=== PATIENT | male | born 1950 ===

== ENCOUNTER 2025-01-28 13:43 | Outpatient (AMB) | payer MEDICARE, OTHER, SELFPAY ==
--- NOTE | 2025-01-28 14:00 | MHC.OFFVIS ---
Intake Visit Reasons: Dementia Allergies No Known Allergies Allergy (Verified 01/26/25 09:55) Medication List - Last Reconciled 01/28/25 by Yissel Barros MD donepezil 5 mg PO DAILY 30 days lisinopril 10 mg PO DAILY mecobalamin (vitamin B12) 1,000 mcg PO DAILY memantine 10 mg PO BID 30 days metformin 500 mg PO BID HPI Comments Details: This is a 74-year-old man who is here with his sister who acted as an full time staff interpreter. He has a history of hypertension diabetes and chronic alcohol abuse having cut down his drinking lately. He has had progressive cognitive decline over the last few years in his balance has deteriorated so that he walks with a broad-based gait but reports no falls. Subjectively the patient feels fine and he does not feel there is anything wrong with him and is not aware of his memory. He has already had a CAT scan of the head which showed diffuse cortical atrophy and white matter disease, thyroid levels were normal B12 was low at 193. He also has a history of cirrhosis of the liver. [facility], [facility] Medical History (Updated 01/28/25 @ 14:09 by Yissel Barros MD) Type 2 diabetes mellitus Dementia Review of Systems Reports difficulty urinating Musc Reports abnormal gait Neuro Reports abnormal gait, Reports lack of coordination and Reports memory loss Psych Reports memory loss Physical Exam Neuro Other: He is alert pleasant and cooperative. He is disoriented to day date month and ear. He thinks it is 1976. He thought it was February. He does not know the floor he is on but knows he is in [place] in what he considers a facility to help him stop drinking. He is unable to do serial 7 subtractions. 0/3 recall at the end of 3 minutes. He walks with a broad-based ataxic gait. His neuro exam is otherwise nonfocal MMS 20/30 Mini Mental Status Exam Level of Consciousness:?Alert.? Orientation:?Does not Know correct year, month, date, day and season.?Knows correct city, not county and state. not Know correct location and floor.? Registration:?Able to register 3 objects.? Attention:?Serial 7's unable.? Recall:?Able to recall 0 out of 3 objects.? Language:?Normal spontaneous speech, fluency, repetition, naming, comprehension, reading, and writing.? ?? Total Score:?20/30.? Neurological Abnormal neurological findings:??None. ? Mental Status:?as above Cranial Nerves:?Pupils are equal, round and reactive to light. Fundoscopy shows normal disc bilaterally. External ocular muscles are intact. Visual hinds are full, no ptosis. Face is symmetrical, no facial weakness or droop. Facial sensations are normal.? Tongue protrudes in midline. Palate elevates symmetrically. Shoulder?? shrugging is normal.? Motor Examination:?Normal muscle tone, bulk and strength.?No atrophy or fasciculations.?No drift of the extended upper extremities.?Deep tendon reflexes are 2+.?Plantars?? are flexor.? ?Motor Strength:? Proximal Muscles (out of 5):?5 Distal Muscles (out of 5):?5 Neck Flexors (out of 5):?5 Neck Extensors (out of 5):?5 Deltoid (out of 5):?5 Biceps (out of 5):?5 Triceps (out of 5):?5 Serratus Anterior (out of 5):?5 Wrist Extensors (out of 5):?5 APB (out of 5):?5 Finger Spread (out of 5):?5 Ileopsoas (out of 5):?5 Quadriceps (out of 5):?5 Hamstrings (out of 5):?5 Tibialis Anterior (out of 5):?5 Peronei (out of 5):?5 EDB (out of 5):?5 Gastrocnemius (out of 5):?5 Straight Leg Raising:?90 degrees.? Sensory Exam:?Normal light touch,?? temperature, pinprick, vibration and joint-position sensations.?Rhomberg?? sign is absent.? Coordination:?No ataxia,?no titubation,?qvfjtd-yo-gimx, kbso-egyt-wmnd test, and rapid alternating?? movements were normal.? Gait Exam:?Broad based ataxix gait? Cerebellar Signs:?Ozgxiu-sr-uqmb and?? ncvv-pm-fmca is normal.?No dysdiadochokinesia.? Extrapyramidal System:?No tremor or?rigidity, normal facial expressions.?No bradykinesia. No bradyphrenia. Normal arm swing and posture. No propulsion or retropulsion.? Speech:?Normal,?no dysphasia or dysarthria.? General Examination GENERAL APPEARANCE:??Morbid obesity, in no acute distress?.? ?? HEAD:??normocephalic,?atraumatic.? ?? EYES:??sclera non-icteric,?conjunctiva clear.? ?? EARS:??auditory canal clear,?tympanic membrane intact, clear.? ?? NOSE:??no lesions.? ?? ORAL CAVITY:??gums normal,?mucosa moist,?no lesions.? ?? THROAT:??clear.? ?? NECK/THYROID:??no cervical lymphadenopathy,?thyroid normal,?neck supple, full range of motion,?no carotid bruit.? ?? SKIN:??no rashes,?no significant?? birthmarks.? ?? HEART:??S1, S2 normal,?no murmurs? ?? LUNGS:??clear anteriorly and ?posteriorly? ?? CHEST:??no gross rib deformity,?clear to ?auscultation.? ?? BACK:??normal exam of spine.? ?? MUSCULOSKELETAL:??normal.? ?? EXTREMITIES:??no edema.? ?? PERIPHERAL PULSES:??normal.? ?? PSYCH:??alert, oriented,?cognitive function intact,?cooperative with exam?,?alert,?? oriented,?cognitive ?function intact,?cooperative with exam.? Assessment & Plan Assessment & Plan (1) Chronic alcohol abuse: Code(s): F10.10 - Alcohol abuse, uncomplicated Category: Medical (2) Dementia: Code(s): F03.90 - Unspecified dementia, unspecified severity, without behavioral disturbance, psychotic disturbance, mood disturbance, and anxiety Category: Medical Plan Donepezil 5mg a aday and memantine 10mg bid ; EEG. Stop drinking completely Orders: Orders EEG Routine Today F03.90 - Unspecified dementia, unspecified severity, without behavioral disturbance, psychotic disturbance, mood disturbance, and anxiety Medications: New donepezil 5 mg PO DAILY 30 tabs 5RF 30 days memantine 10 mg PO BID 60 tabs 5RF 30 days Coding Level of Care Code New Pt Level 5 (40009) Diagnoses Chronic alcohol abuse F10.10 Dementia F03.90
--- OUTSIDE RECORDS SUMMARY | 2025-01-28 21:18 | XMS_ITS | Encounter Summary ---
Author Organization [facility] Address [address] [place] [address] Care Team Providers Care Guest Attendant Name Role Phone Tracey Norton MD Primary Care Provider Reason for Referral * Consultation (Routine) - Closed Specialty Diagnoses / Procedures Referred By Contac t Referred To Contact Neurology Diagnoses B12 deficiency Mixed dementia ([facility] V24, [facility] V28) Current smoker Moderate dementia without behavioral disturbance, psychotic disturbance, mood disturbance, or anxiety, unspecified dementia type ([facility] V24, [facility] V28) Type 2 diabetes mellitus treated without insulin ([facility] V24, [facility] V28) Tracey Norton MD [address] [place] [address] Phone: tel: fax: Jenny Gonzalez MD [address] [place] [address] [place] [address] Phone: tel: fax: Referral ID Status Reason Start Date Expiration Date V isits Requested Visits Authorized [id number] Closed Specialty Services Required 12/08/2024 12/08/2025 4 4 Encounter Details Date Type Department Care Team (Late st Contact Info) Description 11/28/2024 Results Follow-Up Adult Medicine - [facility] [address] [place] [address] Tracey Norton MD [address] [place] [address] Social History Tobacco Use Types Packs/Day Years Used Date Smoking Tobacco: Every Day Cigarettes 1.5 61.9 Started: 1962 Smokeless Tobacco: Never Alcohol Use Standard Drinks/Week Comments Yes 2 (1 standard drink = 0.6 oz pur e alcohol) Interpersonal Safety Answer Date Record ed Physical Abuse Unrecognized value 01/16/2024 Verbal Abuse Unrecognized value 01/16/2024 Sex and Gender Information Value Date Recorded Sex Assigned at Not on file Legal Sex Male 2:59 AM EST Gender Identity Not on file Sexual Orientation Not on file documented as of this encounter Ordered Prescriptions Prescription Sig Dispense Quantity Refills Last Filled Start Date End Date cyanocobalamin (Vitamin B-12) 1,000 mcg tabletIndications:B 12 deficiency Take 1 tablet (1,000 mcg total) by mouth 1 (one) time each day. 30 each 11 11/28/2024 documented in this encounter Plan of Treatment Upcoming Encounters Date Type Department Care Team (Late st Contact Info) Description 03/31/2025 11:00 AM EST Office Visit Adult Medicine - [facility] [address] [place] [address] Curtis Rodriguez PA [address] [place] [address] Scheduled Referrals Name Type Priority Associated Diagnoses Orde r Schedule Ambulatory referral to Neurology Outpatient Referral Routine B12 deficiency Mixed dementia ([facility] V24, [facility] V28) Current smoker Moderate dementia without behavioral disturbance, psychotic disturbance, mood disturbance, or anxiety, unspecified dementia type ([facility] V24, [facility] V28) Type 2 diabetes mellitus treated without insulin ([facility] V24, [facility] V28) Expected: 12/08/2024 (Approximate), Expires: 12/08/2025 documented as of this encounter Visit Diagnoses Diagnosis Mixed dementia ([facility] V24, [facility] V28)- Primary B12 deficiency Current smoker Moderate dementia without behavioral disturbance, psychotic disturbance, mood disturbance, or anxiety, unspecified dementia type ([facility] V24, [facility] V28) Type 2 diabetes mellitus treated without insulin ([facility] V24, [facility] V28) documented in this encounter Additional Health Concerns Assessment Noted Time PHQ-9 Depression Total Score: 0 11/29/19 25 10:37 AM EDT documented as of this encounter Care Teams Guest Attendant Relationship Specialty Start Date End Date Tracey Norton MD [address] [place] [id number] PCP - General Internal Medicine 03/11/21 documented as of this encounter
--- OUTSIDE RECORDS SUMMARY | 2025-01-28 21:18 | XMS_ITS | Clinical Summary ---
Author Organization [facility] Address [address] [place] [address] Phone Care Team Providers Care Inventory Control Assistant Name Role Phone Tracey Norton MD Primary Care Provider Allergies No known active allergies Medications metFORMIN XR (GLUCOPHAGE-XR) 500 mg 24 hr tablet TAKE 1 TABLET(500 MG) BY MOUTH TWICE DAILY WITH MEALS. DO NOT CRUSH, CHEW, OR SPLIT 180 tablet 5 Active cyanocobalamin (Vitamin B-12) 1,000 mcg tabletIndicatio ns:B12 deficiency Take 1 tablet (1,000 mcg total) by mouth 1 (one) time each day. 30 each 11 5 Active lisinopriL (PRINIVIL,ZESTR IL) 10 mg tablet TAKE 1 TABLET(10 MG) BY MOUTH 1 TIME EACH DAY 90 tablet 1 5 Active lisinopriL (PRINIVIL,ZESTR IL) 10 mg tablet Take 1 tablet (10 mg total) by mouth 1 (one) time each day. 90 tablet 1 5 01/01/20 25 Discontinued Active Problems Problem Noted Date Diagnosed Date Heart murmur 08/18/2022 Cirrhosis of liver without ascites 06/26/2018 Overview (12/04/2023): Seen on CT 2019 Other emphysema 06/26/2018 Overview (12/04/2023): Seen on CT Pulmonary nodule 07/14/2016 Overview (12/04/2023): Repeat 12/2016 Glaucoma 12/04/2012 Overview (12/04/2023): Laser surgery, Dr Becker Primary hypertension 12/04/2012 Assessment & Plan (11/28/2024 11:56 AM EDT): C/w lisinopril 10mg daily. Orders: Comprehensive metabolic panel; Future Hemoglobin A1c; Future Thyroid stimulating hormone with reflex to free t4 and free t3; Future Vitamin B12; Future CT Head wo Contrast; Future Tobacco use disorder 12/04/2012 Type 2 diabetes mellitus 12/04/2012 Overview (12/04/2023): Dx 2006 Assessment & Plan (11/28/2024 11:56 AM EDT): Taking metformin. Uptodate with eye exam. Due for labs. Orders: Comprehensive metabolic panel; Future Hemoglobin A1c; Future Thyroid stimulating hormone with reflex to free t4 and free t3; Future Vitamin B12; Future CT Head wo Contrast; Future Encounters Date Type Department Care Team Description 01/13/2025 11:22 AM EST - 01/13/2025 11:59 PM EST Hospital Encounter [facility] CT Scan [address] [place] [id number] Encounter for screening for malignant neoplasm of respiratory organs; Nicotine dependence, cigarettes, uncomplicated Discharge Disposition: Home or Self Care 01/06/2025 Telephone Adult Medicine - [place] [address] [place] [phone] Tracey Norton MD 12/23/2024 Telephone Lung Screening Program - [place] [address] [place] [phone] Niki Aquino [place] 12/05/2024 9:15 AM EDT - 12/05/2024 11:59 PM EDT Hospital Encounter CT Scan - [address] [phone] Medicare annual wellness visit, subsequent; Type 2 diabetes mellitus without complication, without long-term current use of insulin ([facility] [place], [facility] V28); Primary hypertension; Current smoker; Moderate dementia without behavioral disturbance, psychotic disturbance, mood disturbance, or anxiety, unspecified dementia type ([facility] V24, [facility] V28) Discharge Disposition: Home or Self Care 11/28/2024 9:45 AM EDT Office Visit Adult [facility] [address] [place] [phone] Tracey Norton MD Medicare annual wellness visit, subsequent (Primary Dx); Type 2 diabetes mellitus without complication, without long-term current use of insulin ([facility] V[place], [facility] V28); Primary hypertension; Current smoker; Moderate dementia without behavioral disturbance, psychotic disturbance, mood disturbance, or anxiety, unspecified dementia type ([facility] V24, [facility] V28); Advance care planning; Encounter for immunization 11/28/2024 Results Follow-Up Adult [facility] [address] [place] [address] Tracey Norton MD from Last 3 Months Immunizations Immunization Administration Dates Next Due Influenza trivalent, 0.5mL ( Fluad) 65yo and older 11/28/2024,11/13/2023 Moderna SARS-CoV-2 COVID-19, mRNA, LNP-S, preservative free 02/14/2021,07/15/2020,06/17/2020 Pneumococcal conjugate 13 va lent (Prevnar 13, PCV13) 2mo and older 05/14/2018 Pneumococcal polysaccharide 23 valent (Pneumovax 23) 2yo and older 12/04/2012 Tdap Tetanus diptheria acell ular pertussis (Boostrix; Adacel) 7yo and older 09/22/2022,09/16/2012 Surgical History Surgery Date Site/Laterality Comments EYE SURGERY 2009 PROCEDURE: HISTORICAL EYE SURGERY; COMMENT: laser, glaucoma, Dr Ennis OTHER SURGICAL HISTORY PROCEDURE: NC RADIAL KERATOTOMY COLONOSCOPY 12/07/15 PROCEDURE: HISTORICAL COLONOSCOPY; COMMENT: Diverticulosis, adenoma sigmoid colon Medical History Medical History Date Comments Hypertension 12/04/2012 DX:Hypertension Glaucoma DX:Glaucoma Other emphysema ([facility] [place], [facility] V28) 019 DX:Other emphysema (HCC) Murmur, heart Cirrhosis (CMS/HCC V24, CMS/HCC V28) Pulmonary nodule Diabetes mellitus (CMS/HCC V24, CMS/HCC V28) Colon polyp Family History Medical History Relation Name Comments Other cancer Brother 1 unknown, jaundi ce No Known Problems Brother 2 No Known Problems Brother 3 Depression Father Hypertension Father Asthma Mother Cataracts Mother Diabetes Mother Hypertension Mother No Known Problems Sister 1 No Known Problems Sister 2 No Known Problems Sister 3 No Known Problems Sister 4 Blindness Neg Hx Glaucoma Neg Hx Lung cancer Neg Hx Macular degeneration Neg Hx Strabismus Neg Hx Relation Name Status Comments Brother 1 Brother 2 Brother 3 Alive Father Mother Sister 1 Alive Sister 2 Alive Sister 3 Alive Sister 4 Alive Social History Tobacco Use Types Packs/Day Years Used Date Smoking Tobacco: Every Day Cigarettes 1.5 61.9 Started: 1962 Smokeless Tobacco: Never Tobacco Cessation:Ready to Q uit: Not Asked; Counseling Given: Not Answered Alcohol Use Standard Drinks/Week Comments Yes 2 (1 standard drink = 0.6 oz pur e alcohol) Interpersonal Safety Answer Date Record ed Physical Abuse Unrecognized value 01/16/2024 Verbal Abuse Unrecognized value 01/16/2024 Sex and Gender Information Value Date Recorded Sex Assigned at Not on file Legal Sex Male 2:59 AM EST Gender Identity Not on file Sexual Orientation Not on file Last Filed Vital Signs Vital Sign Reading Time Taken Comments Blood Pressure 138/84 11/28/2024 10:47 AM EDT Pulse 83 11/28/2024 10:07 AM EDT Temperature 36.1 C (97 F) 11/28/2024 10:07 AM EDT Respiratory Rate 16 11/28/2024 10:07 AM EDT Oxygen Saturation 97% 01/16/2024 2:14 PM EST Inhaled Oxygen Concentration - - Weight 68.5 kg (151 lb) 11/28/2024 10:07 AM EDT Height 164 cm (5' 4.57 ) 11/28/2024 10:07 AM EDT Body Mass Index 25.47 11/28/2024 10:07 AM EDT Plan of Treatment Upcoming Encounters Date Type Department Care Team (Late st Contact Info) Description 03/31/2025 11:00 AM EST Office Visit Adult Medicine [address] [phone] Curtis Rodriguez PA [address] [place] [address] Health Maintenance Due Date Last Done Comments RSV Immunization Adult Patients (1 - Risk 50-74 years 1-dose series) 11/18/2001 Zoster Vaccines (1 of 2) 11/18/2001 Social Influencers of Health Screening 01/22/2022 Pneumococcal Vaccine: 50+ Years (3 of 3 - PCV20 or PCV21) 05/15/2023 05/14/2018, 12/04/2012 COVID-19 Vaccine (4 - season) 2024 02/14/2021, 07/15/2020, 06/17/2020 Diabetes: Annual Urine Albumin-Creatinine Ratio (uACR) 03/28/2025 03/28/2024, 05/22/2022 Diabetes: Annual Foot Exam 03/28/2025 03/28/2024 Diabetes: Blood Sugar Control Test (HGBA1C) 05/29/2025 11/28/2024, 07/29/2024, 03/28/2024, Additional history exists Diabetes: Annual Retina Eye Exam 11/18/2025 11/18/2024 Diabetes: Annual GFR (Glomerular Filtration Rate) 11/28/2025 11/28/2024, 07/29/2024, 03/28/2024, Additional history exists Falls Risk Assessment 11/28/2025 11/28/2024 Hypertension/CHF/CAD Annual BMP Blood Test 11/28/2025 11/28/2024, 07/29/2024, 03/28/2024, Additional history exists Medicare Annual Wellness Visit 11/28/2025 11/28/2024, 11/02/2023 Lung Cancer Screening (Low Dose CT) 01/13/2026 01/13/2025, 01/09/2024 Cholesterol Screening (Lipid Panel) 03/28/2029 03/28/2024, 12/21/2023, 05/22/2022 DTaP,Tdap,and Td Vaccines (3 - Td or Tdap) 09/22/2032 09/22/2022, 09/16/2012 Abdominal Aortic Aneurysm (AAA) Screen Completed 06/04/2018, 06/04/2018 Hepatitis C Screening Completed 12/04/2022 Colorectal Cancer Screening: Colonoscopy Discontinued 01/16/2024 Depression Screening Completed 11/28/2024 Influenza Vaccine Completed 11/28/2024, 11/13/2023 HIB Vaccines Aged Out No longer eligi ble based on patient's age to complete this topic HPV Vaccines Aged Out No longer eligi ble based on patient's age to complete this topic Hepatitis A Vaccines Aged Out No long er eligible based on patient's age to complete this topic Hepatitis B Vaccines Aged Out No long er eligible based on patient's age to complete this topic IPV Vaccines Aged Out No longer eligi ble based on patient's age to complete this topic MMR Vaccines Aged Out No longer eligi ble based on patient's age to complete this topic Meningococcal ACWY Vaccine Aged Out N o longer eligible based on patient's age to complete this topic Meningococcal B Vaccine Aged Out No l onger eligible based on patient's age to complete this topic RSV Immunization Patients Under 20 months Aged Out No longer eligible based on patient's age to complete this topic Varicella Vaccines Aged Out No longer eligible based on patient's age to complete this topic Procedures Procedure Name Priority Date/Time Associated Diagnosis Comments CT LUNG SCREENING Routine 01/13/2025 11: 55 AM EST Encounter for screening for malignant neoplasm of respiratory organs Nicotine dependence, cigarettes, uncomplicated CT HEAD WO CONTRAST Routine 12/05/2024 9 :27 AM EDT Medicare annual wellness visit, subsequent Type 2 diabetes mellitus without complication, without long-term current use of insulin ([facility] V24, [facility] V28) Primary hypertension Current smoker Moderate dementia without behavioral disturbance, psychotic disturbance, mood disturbance, or anxiety, unspecified dementia type ([facility] V24, [facility] V28) VITAMIN B12 Routine 11/28/2024 11:10 AM EDT Medicare annual wellness visit, subsequent Type 2 diabetes mellitus without complication, without long-term current use of insulin ([facility] V24, [facility] V28) Primary hypertension Current smoker Moderate dementia without behavioral disturbance, psychotic disturbance, mood disturbance, or anxiety, unspecified dementia type ([facility] V24, [facility] V28) THYROID STIMULATING HORMONE WITH REFLEX TO FREE T4 AND FREE T3 Routine 11/28/2024 11:10 AM EDT Medicare annual wellness visit, subsequent Type 2 diabetes mellitus without complication, without long-term current use of insulin ([facility] V24, [facility] V28) Primary hypertension Current smoker Moderate dementia without behavioral disturbance, psychotic disturbance, mood disturbance, or anxiety, unspecified dementia type ([facility] V24, [facility] V28) HEMOGLOBIN A1C Routine 11/28/2024 11:10 AM EDT Medicare annual wellness visit, subsequent Type 2 diabetes mellitus without complication, without long-term current use of insulin ([facility] V24, [facility] V28) Primary hypertension Current smoker COMPREHENSIVE METABOLIC PANEL Routine 11/28/2024 11:10 AM EDT Medicare annual wellness visit, subsequent Type 2 diabetes mellitus without complication, without long-term current use of insulin ([facility] V24, [facility] V28) Primary hypertension Current smoker MICROALBUMIN CREATININE URINE RATIO Routine 03/28/2024 10:27 AM EST Type 2 diabetes mellitus treated without insulin ([facility] V24, [facility] V28) Primary hypertension LIPID PANEL WITH REFLEX TO DIRECT LDL Routine 03/28/2024 9:55 AM EST Type 2 diabetes mellitus treated without insulin ([facility] V24, [facility] V28) Primary hypertension COLONOSCOPY Routine 01/16/2024 1:53 PM EST Hx of colonic polyps HEPATITIS C SCREENING Routine 12/04/2022 US ABDOMINAL AORTA REAL TIME SCREEN STUDY AAA Routine 06/04/2018 8:23 AM EDT Nicotine dependence, unspecified, uncomplicated from Last 3 Months or Most Recently Relevant to Health Maintenance Results * CT Lung Screening (01/13/2025 11:55 AM EST) Anatomical Region Laterality Modality Chest Computed Tomogra phy 01/23/2025 11:4 0 AM EST Impressions 01/23/2025 11:52 AM EST No suspicious mass or nodule. No suspicious interval change. Underlying chronic lung disease. LUNG RADS: Lung-RADS 2: BENIGN S Modifier (Significant or Potentially Significant Findings): None present No suspicious nonpulmonary findings. RECOMMENDATIONS: 12 month screening low dose CT -------- FINAL REPORT -------- Dictated By: Isaiah Prince Dictated Date: 01/23/2025 11:40 ET Assigned Physician: Isaiah Prince Reviewed and Electronically Signed By: Isaiah Prince Signed Date: 01/23/2025 11:52 ET Workstation ID: [id number] Transcribed By: Self Edit Transcribed Date: 01/23/2025 11:40 ET Narrative 01/23/2025 11:52 AM EST EXAMINATION: CT CHEST WITHOUT CONTRAST LUNG CANCER SCREENING, LOW DOSE CLINICAL INFORMATION: Lung cancer screening. Current smoker. COMPARISON: Portions of previous 01/09/24 TECHNIQUE: Multidetector CT. Examination of the chest. Examination of the chest without IV contrast. Reformatting in the coronal and sagittal planes. Device: Freebase VCT DLP: 112 mGy-cm CTDI: 3.22 Dose optimization was performed including the use of low-dose iterative reconstruction technique with automatic exposure control based on patient size. Type of contrast: None Volume of IV contrast: None Volume of contrast discarded: 0 mL FINDINGS: LUNG: There is tracheomegaly. There are secretions in the distal trachea and right mainstem bronchus as well as the bronchus intermedius. Irregularity of the central airways with some mild bronchiectasis suspected. LUNG NODULES: There are no suspicious nodules or masses. OTHER PULMONARY: There are a few unchanged scattered micronodules. There is moderate to marked centrilobular and paraseptal emphysema. There is no honeycomb formation. MEDIASTINUM: There are no enlarged mediastinal or hilar lymph nodes. No suspicious abnormalities of the esophagus. CARDIAC: There is no cardiac mass. No significant pericardial fluid or thickening. There is some calcification in the region of the aortic valve. There are marked calcifications and/or coronary stents. VASCULAR: There is no thoracic aortic aneurysm. The main pulmonary artery is normal caliber. Extensive calcification at the bifurcation of the innominate. PLEURA: There is no pleural fluid or pneumothorax. There is an unchanged focal area of slightly high density pleural thickening in the lateral right upper chest (). AXILLA/CHEST WALL: There are no enlarged axillary lymph nodes. No chest wall mass demonstrated. VISUALIZED UPPER ABDOMEN: No suspicious abnormality on limited assessment of the visualized upper abdomen. Bowel interposes between the body wall and the liver. This is of potential significance if percutaneous sampling is ever attempted. MUSCULOSKELETAL: No suspicious focal bony lesion demonstrated. Focal fatty change within the dorsal paraspinal muscles on the right in the upper lumbar region. Procedure Note Isaiah Prince MD - 01/23/2025 EXAMINATION: CT CHEST WITHOUT CONTRAST LUNG CANCER SCREENING, LOW DOSE CLINICAL INFORMATION: Lung cancer screening. Current smoker. COMPARISON: Portions of previous 01/09/24 TECHNIQUE: Multidetector CT. Examination of the chest. Examination of the chest without IV contrast. Reformatting in the coronal and sagittal planes. Device: Freebase VCT DLP: 112 mGy-cm CTDI: 3.22 Dose optimization was performed including the use of low-dose iterativereconstruction technique with automatic exposure control based on patientsize. Type of contrast: None Volume of IV contrast: None Volume of contrast discarded: 0 mL FINDINGS: LUNG: There is tracheomegaly. There are secretions in the distal tracheaand right mainstem bronchus as well as the bronchus intermedius. Irregularity of the central airways with some mild bronchiectasissuspected. LUNG NODULES: There are no suspicious nodules or masses. OTHER PULMONARY: There are a few unchanged scattered micronodules. Thereis moderate to marked centrilobular and paraseptal emphysema. There is nohoneycomb formation. MEDIASTINUM: There are no enlarged mediastinal or hilar lymph nodes. Nosuspicious abnormalities of the esophagus. CARDIAC: There is no cardiac mass. No significant pericardial fluid orthickening. There is some calcification in the region of the aorticvalve. There are marked calcifications and/or coronary stents. VASCULAR: There is no thoracic aortic aneurysm. The main pulmonary arteryis normal caliber. Extensive calcification at the bifurcation of theinnominate. PLEURA: There is no pleural fluid or pneumothorax. There is an unchangedfocal area of slightly high density pleural thickening in the lateralright upper chest (). AXILLA/CHEST WALL: There are no enlarged axillary lymph nodes. No chestwall mass demonstrated. VISUALIZED UPPER ABDOMEN: No suspicious abnormality on limited assessmentof the visualized upper abdomen. Bowel interposes between the body walland the liver. This is of potential significance if percutaneous samplingis ever attempted. MUSCULOSKELETAL: No suspicious focal bony lesion demonstrated. Focalfatty change within the dorsal paraspinal muscles on the right in theupper lumbar region. IMPRESSION: No suspicious mass or nodule. No suspicious interval change. Underlying chronic lung disease. LUNG RADS: Lung-RADS 2: BENIGN S Modifier (Significant or Potentially Significant Findings): Nonepresent No suspicious nonpulmonary findings. RECOMMENDATIONS: 12 month screening low dose CT -------- FINAL REPORT -------- Dictated By: Isaiah Prince Dictated Date: 01/23/2025 11:40 ET Assigned Physician: Isaiah Prince Reviewed and Electronically Signed By: Isaiah Prince Signed Date: 01/23/2025 11:52 ET Workstation ID: [id number] Transcribed By: Self Edit Transcribed Date: 01/23/2025 11:40 ET us Vinny Anderson MD IMG CT PROCEDURES Final Result * CT Head wo Contrast (12/05/2024 9:27 AM EDT) Anatomical Region Laterality Modality Head and Neck Computed Tomogra phy 12/05/2024 9:34 AM EDT Impressions 12/05/2024 9:41 AM EDT 1. 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 MR brain is suggested. 2. No acute intracranial abnormality. 3. Diffuse cortical volume loss and nonspecific white matter disease, commonly associated with chronic microangiopathy. 4. Atherosclerosis. -------- FINAL REPORT -------- Dictated By: Deanna Sanchez Dictated Date: 12/05/2024 09:34 ET Assigned Physician: Deanna Sanchez Reviewed and Electronically Signed By: Deanna Sanchez Signed Date: 12/05/2024 09:41 ET Workstation ID: [id number] Transcribed By: Self Edit Transcribed Date: 12/05/2024 09:34 ET Narrative 12/05/2024 9:[address] HEAD WO CONTRAST History: Dementia. Technique: Contiguous axial images were obtained from the skull base to the vertex without the administration of intravenous contrast. Prior studies: None. FINDINGS: There is no acute intracranial hemorrhage. The diaz/white matter differentiation is preserved. There is diffuse cortical volume loss. There are patchy and confluent areas of hypodensity in the periventricular, deep, and subcortical white matter. The ventricles and sulci are symmetric. The basal cisterns are patent. There is no mass effect or midline shift. There are no intra or extra-axial fluid collections identified. Atherosclerotic calcifications are seen in the intracranial arteries. No skull fractures are seen. There is membrane thickening of bilateral ethmoid air cells. The visualized paranasal sinuses and mastoid air cells are otherwise clear. There is the suggestion of low-lying cerebellar tonsils which appear to extend 0.9 cm below the level of the foramen magnum. Procedure Note Deanna Sanchez MD - 12/05/2024 CT HEAD WO CONTRAST History: Dementia. Technique: Contiguous axial images were obtained from the skull base tothe vertex without the administration of intravenous contrast. Prior studies: None. FINDINGS: There is no acute intracranial hemorrhage. The diaz/white matterdifferentiation is preserved. There is diffuse cortical volume loss. Thereare patchy and confluent areas of hypodensity in the periventricular,deep, and subcortical white matter. The ventricles and sulci aresymmetric. The basal cisterns are patent. There is no mass effect ormidline shift. There are no intra or extra-axial fluid collectionsidentified. Atherosclerotic calcifications are seen in the intracranialarteries. No skull fractures are seen. There is membrane thickening of bilateralethmoid air cells. The visualized paranasal sinuses and mastoid air cellsare otherwise clear. There is the suggestion of low-lying cerebellar tonsils which appear toextend 0.9 cm below the level of the foramen magnum. IMPRESSION: 1. 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 MR brain is suggested. 2. No acute intracranial abnormality. 3. Diffuse cortical volume loss and nonspecific white matter disease,commonly associated with chronic microangiopathy. 4. Atherosclerosis. -------- FINAL REPORT -------- Dictated By: Deanna Sanchez Dictated Date: 12/05/2024 09:34 ET Assigned Physician: Deanna Sanchez Reviewed and Electronically Signed By: Deanna Sanchez Signed Date: 12/05/2024 09:41 ET Workstation ID: [id number] Transcribed By: Self Edit Transcribed Date: 12/05/2024 09:34 ET us Tracey Norton MD IMG CT PROCEDURES Parris l Result * Thyroid stimulating hormone with reflex to free t4 and free t3 (11/28/2024 11:10 AM EDT) Pathologist [facility] [place] TSH 1.92 0.40 - 4.00 mcIU/mL LAB CHEMISTRY METHOD 11/28/2024 4:44 PM EDT [facility] Blood Venous blood specimen / Unknown Venipuncture / Unknown 11/28/2024 11:10 AM EDT 11/28/2024 11:10 AM EDT us Tracey Norton MD LAB BLOOD ORDERABLES F inal Result [facility] [address] [place] [address], [place] [phone] * (ABNORMAL) Hemoglobin A1c (11/28/2024 11:10 AM EDT) [facility] Hemoglobin A1C 7.1(H) <6.5 % LAB CHEMISTRY METHOD 11/28/2024 9:56 PM EDT [facility] Mean Bld Glu Estim. 157 mg/dL LAB CHEMISTRY METHOD 11/28/2024 9:56 PM EDT [facility] Blood Venous blood specimen / Unknown Venipuncture / Unknown 11/28/2024 11:10 AM EDT 11/28/2024 11:10 AM EDT us Tracey Norton MD LAB BLOOD ORDERABLES F inal Result Performing Organization Address City/[facility]/ZIP Co de Phone Number [facility] [address] [place] [address], [place] [phone] * (ABNORMAL) Vitamin B12 (11/28/2024 11:10 AM EDT) [facility] Vitamin B-12 193(L) 250 - 900 pcg/mL LAB CHEMISTRY METHOD 11/28/2024 3:39 PM EDT [facility] Blood Venous blood specimen / Unknown Venipuncture / Unknown 11/28/2024 11:10 AM EDT 11/28/2024 11:10 AM EDT us Tracey Norton MD LAB BLOOD ORDERABLES F inal Result [facility] [address] [place] [address], [place] [phone] * (ABNORMAL) Comprehensive metabolic panel (11/28/2024 11:10 AM EDT) [facility] Sodium 139 133 - 145 mmol/L LAB CHEMISTRY METHOD 11/28/2024 3:21 PM EDT [facility] Potassium 3.5 3.5 - 5.5 mmol/L LAB CHEMISTRY METHOD 11/28/2024 3:21 PM [facility] Chloride 103 96 - 110 mmol/L LAB CHEMISTRY METHOD 11/28/2024 3:21 PM [facility] CO2 29 21 - 32 mmol/L LAB CHEMISTRY METHOD 11/28/2024 3:21 PM T [facility] Anion Gap 7 3 - 11 LAB CHEMISTRY METHOD 11/28/2024 3:21 PM [facility] Glucose 121(H) 70 - 100 mg/dL LAB CHEMISTRY METHOD 11/28/2024 3:21 PM [facility] BUN 10 5 - 25 mg/dL LAB CHEMISTRY METHOD 11/28/2024 3:21 PM [facility] Creatinine 0.70 0.70 - 1.30 mg/dL LAB CHEMISTRY METHOD 11/28/2024 3:21 PM [facility] eGFR 97 >=60 mL/min/1. 73m2 LAB CHEMISTRY METHOD 11/28/2024 3:21 PM [facility] Comment:Calculation based on the Chronic Kidney Disease Epidemiology Collaboration (CKD-EPI) equation refit without adjustment for race. BUN/Creatinine Ratio 14.3 LAB CHEMISTRY METHOD 11/28/2024 3:21 PM [facility] Calcium 9.4 8.5 - 10.5 mg/dL LAB CHEMISTRY METHOD 11/28/2024 3:21 PM [facility] AST (SGOT) 16 10 - 42 unit/L LAB CHEMISTRY METHOD 11/28/2024 3:21 PM [facility] ALT (SGPT) 15 10 - 60 unit/L LAB CHEMISTRY METHOD 11/28/2024 3:21 PM [facility] Alkaline Phosphatase 98 42 - 121 unit/L LAB CHEMISTRY METHOD 11/28/2024 3:21 PM [facility] Total Protein 7.2 6.0 - 8.0 g/dL LAB CHEMISTRY METHOD 11/28/2024 3:21 PM [facility] Albumin 3.8 3.2 - 5.0 g/dL LAB CHEMISTRY METHOD 11/28/2024 3:21 PM [facility] Total Bilirubin 0.3 0.0 - 1.4 mg/dL LAB CHEMISTRY METHOD 11/28/2024 3:21 PM [facility] Blood Venous blood specimen / Unknown Venipuncture / Unknown 11/28/2024 11:10 AM EDT 11/28/2024 11:10 AM EDT us Tracey Norton MD LAB BLOOD ORDERABLES F inal Result [facility] [address] [place] [address], [place] [phone] * Microalbumin creatinine urine ratio (03/28/2024 10:27 AM EST) Creatinine, Urine 104.0 mg/dL LAB CHEMISTRY METHOD 03/28/2024 1:03 PM [facility] Microalb, Ur 5.7 0.0 - 29.0 mg/L LAB CHEMISTRY METHOD 03/28/2024 1:03 PM [facility] Microalb/Creat Ratio 5 <30 mg/g creat LAB CHEMISTRY METHOD 03/28/2024 1:03 PM [facility] Urine Urine specimen obtained by clean catch procedure / Unknown Non-blood Collection / Unknown 03/28/2024 10:27 AM EST 03/28/2024 10:27 AM EST Tracey Norton MD LAB URINE ORDERABLES F inal Result [facility] [address] [place] [address], [place] [phone] * Lipid panel with reflex to direct LDL (03/28/2024 9:55 AM EST) Cholesterol 127 0 - 200 mg/dL LAB CHEMISTRY METHOD 03/28/2024 1:06 PM [facility] Triglycerides 37 0 - 150 mg/dL LAB CHEMISTRY METHOD 03/28/2024 1:06 PM [facility] Comment:Results verified by repeat testing HDL 44 >=40 mg/dL LAB CHEMISTRY METHOD 03/28/2024 1:06 PM [facility] LDL Calculated 76 0 - 100 mg/dL LAB CHEMISTRY METHOD 03/28/2024 1:06 PM [facility] VLDL Cholesterol Bill 7.4 mg/dL LAB CHEMISTRY METHOD 03/28/2024 1:06 PM [facility] Non HDL Chol. (LDL+VLDL) 83 <145 mg/dL LAB CHEMISTRY METHOD 03/28/2024 1:06 PM EST [facility] Chol/HDL Ratio 2.9 0.0 - 4.4 LAB CHEMISTRY METHOD 03/28/2024 1:06 PM EST [facility] Blood Venous blood specimen / Unknown Venipuncture / Unknown 03/28/2024 9:55 AM EST 03/28/2024 9:55 AM EST Tracey Norton MD LAB BLOOD ORDERABLES F inal Result [facility] [address] [place] [address], [place] [phone] * COLONOSCOPY Anesthesia - MAC; [facility] END[facility]COPY (01/16/2024 1:53 PM EST) Anatomical Region Laterality Modality Other 01/16/2024 1:25 PM EST Impressions 01/16/2024 1:53 PM EST - Preparation of the colon was fair. - Diverticulosis in the entire examined colon. - Internal hemorrhoids. - No specimens collected. Recommendation: - Repeat colonoscopy Deferred due to age. - Use fiber, for example Citrucel, Fibercon, Konsyl or Metamucil. Narrative 01/16/2024 1:53 PM EST [facility] Patient Name: Dimas Guerra Procedure Date: 01/16/2024 1:25 PM Date of : 1950 Age: 73 Gender: Male Note Status: Finalized Attending MD: Gilles Rogel MD, Procedure Date No Time: 01/16/2024 Procedure: Colonoscopy Indications: Screening for colorectal malignant neoplasm Providers: Gilles Rogel MD Referring MD: Gilles Rogel MD Medicines: Propofol per Anesthesia Complications: No immediate complications. Estimated Blood Loss: Estimated blood loss: none. Procedure: Pre-Anesthesia Assessment: - ASA Grade Assessment: III - A patient with severe systemic disease. After I obtained informed consent, the scope was passed under direct vision. Throughout the procedure, the patient's blood pressure, pulse, and oxygen saturations were monitored continuously.The Colonoscope was introduced through the anus and advanced to the cecum, identified by appendiceal orifice and ileocecal valve. The colonoscopy was performed without difficulty. The patient tolerated the procedure well. The quality of the bowel preparation was fair. Findings: The perianal and digital rectal examinations were normal. Scattered diverticula were found in the entire colon. Internal hemorrhoids were found during endoscopy. The hemorrhoids were Grade I (internal hemorrhoids that do not prolapse). Procedure Code(s): --- Professional --- G0121, Colorectal cancer screening; colonoscopy on individual not meeting criteria for high risk Diagnosis Code(s): --- Professional --- Z12.11, Encounter for screening for malignant neoplasm of colon K64.0, First degree hemorrhoids K57.30, Diverticulosis of large intestine without perforation or abscess without bleeding CPT copyright 2020 [employer]. All rights reserved. The codes documented in this report are preliminary and upon coring machine operator review may be revised to meet current compliance requirements. Gilles Rogel MD 01/16/2024 1:52:59 PM This report has been signed electronically.Gilles Rogel MD Number of Addenda: 0 Note Initiated On: 01/16/2024 1:25 PM Scope In: Scope Out: Endoscopy Department at [facility] - [address] [place] [id number] Procedure Note Gilles Rogel MD - 01/16/2024 [facility] Patient Name: Dimas Guerra Procedure Date: 01/16/2024 1:25 PM Date of : 1950 Age: 73 Gender: Male Note Status: Finalized Attending MD: Gilles Rogel MD, Procedure Date No Time: 01/16/2024 Procedure: Colonoscopy Indications: Screening for colorectal malignant neoplasm Providers: Gilles Rogel MD Referring MD: Gilles Rogel MD Medicines: Propofol per Anesthesia Complications: No immediate complications. Estimated Blood Loss: Estimated blood loss: none. Procedure: Pre-Anesthesia Assessment: - ASA Grade Assessment: III - A patient with severe systemic disease. After I obtained informed consent, the scope was passed under direct vision. Throughout theprocedure, the patient's blood pressure, pulse, and oxygen saturations were monitored continuously.The Colonoscope was introduced through the anus and advanced to the cecum, identified by appendiceal orifice and ileocecal valve. The colonoscopy was performed without difficulty. The patient tolerated the procedure well. The quality of the bowel preparation was fair. Findings: The perianal and digital rectal examinations were normal. Scattered diverticula were found in the entirecolon. Internal hemorrhoids were found during endoscopy.The hemorrhoids were Grade I (internal hemorrhoids thatdo not prolapse). Procedure Code(s): --- Professional --- G0121, Colorectal cancer screening; colonoscopy on individual not meeting criteria for high risk Diagnosis Code(s): --- Professional --- Z12.11, Encounter for screening for malignantneoplasm of colon K64.0, First degree hemorrhoids K57.30, Diverticulosis of large intestine without perforation or abscess without bleeding CPT copyright 2020 [employer]. All rights reserved. The codes documented in this report are preliminary and upon coring machine operator reviewmay be revised to meet current compliance requirements. Gilles Rogel MD 01/16/2024 1:52:59 PM This report has been signed electronically.Gilles Rogel MD Number of Addenda: 0 Note Initiated On: 01/16/2024 1:25 PM Scope In: Scope Out: Endoscopy Department at [facility] - [address] [place] [phone] IMPRESSION: - Preparation of the colon was fair. - Diverticulosis in the entire examined colon. - Internal hemorrhoids. - No specimens collected. Recommendation: - Repeat colonoscopy Deferred due to age. - Use fiber, for example Citrucel, Fibercon, Konsylor Metamucil. Gilles Rogel MD GI~PROCEDURE ORDERABLES Final Re sult * Hepatitis C Screening (12/04/2022) Pathologist [facility] Hepatitis C Screening abstracted Historical Provider HEALTH MAINTENANCE Final Result * ABDOMINAL AORTA REAL TIME SCREEN STUDY AAA (06/04/2018 8:23 AM EDT) Anatomical Region Laterality Modality Ultrasound 05/14/2018 10:2 9 AM EDT Narrative 06/04/2018 11:52 AM EDT US ABDOMINAL AORTA REAL TIME SCREEN STUDY AAA ABDOMINAL AORTA SCREENING ULTRASOUND History: Tobacco use disorder. Comparison: None. FINDINGS: The proximal aorta measures 2.3 cm in diameter. The mid aorta measures 2.0 cm in diameter. The distal aorta measures 1.7 cm in diameter. No periaortic fluid collection is seen. The aortic bifurcation is normal in appearance. The proximal bilateral common iliac arteries are normal in caliber. There is mild atherosclerotic plaquing IMPRESSION: IMPRESSION: No visualized abdominal aortic aneurysm. Procedure Note Deanna Sanchez MD - 02/07/2022 US ABDOMINAL AORTA REAL TIME SCREEN STUDY AAA ABDOMINAL AORTA SCREENING ULTRASOUND History: Tobacco use disorder. Comparison: None. FINDINGS: The proximal aorta measures 2.3 cm in diameter. The mid aortameasures 2.0 cm in diameter. The distal aorta measures 1.7 cm in diameter. No periaorticfluid collection is seen. The aortic bifurcation is normal in appearance. The proximal bilateralcommon iliac arteries are normal in caliber. There is mild atherosclerotic plaquing IMPRESSION: IMPRESSION: No visualized abdominal aortic aneurysm. [facility] US PROCEDURES Final Result from Last 3 Months or Most Recently Relevant to Health Maintenance Insurance MEDICARE [facility] Advance Directives Documents on File Type Date Recorded Patient [employer] anation Advance Directives and Living Will 11/28/2024 10:55 AM proxy 11/28/2024 Care Teams Inventory Control Assistant Relationship Specialty Start Date End Date Tracey Norton MD [address] [address] PCP - General Internal Medicine 03/11/21
--- OUTSIDE RECORDS SUMMARY | 2025-01-28 21:18 | XMS_ITS ---
Author Name [facility] Organization Unknown Care Team Organization Name Specialty Phone Email Start Date End Da te [facility] 10/08/2024 [facility] 01/31/20232023
== END 2025-01-28 14:14 | disposition home or self-care (01) ==
PROVIDERS: PCP Family Medicine; Visit Provider Psychiatry & Neurology Neurology
DX: F10.10 Alcohol abuse, uncomplicated (principal); F03.90 Unspecified dementia, unspecified severity, without behavioral disturbance, psychotic disturbance, mood disturbance, and anxiety
CPT/HCPCS: 99205

== ENCOUNTER → 2025-01-28 13:43 | Outpatient (BNVA) | payer MEDICARE, OTHER, SELFPAY | PROVIDERS: PCP Family Medicine; Visit Provider Psychiatry & Neurology Neurology | DX: F10.10 Alcohol abuse, uncomplicated (principal); F03.90 Unspecified dementia, unspecified severity, without behavioral disturbance, psychotic disturbance, mood disturbance, and anxiety | CPT/HCPCS: 99202 ==